=== PATIENT | female | born 1940 | race Hispanic/Latino ===

== ENCOUNTER 2018-04-25 08:05 | Emergency (ER) | payer MEDICARE, BC ==
[2018-04-25 08:09] VITALS: TEMP 98.2; BMI 31.1
[2018-04-25] MEDS ORDERED: cefTRIAXone (Rocephin) 1 gm Inj ONE (08:28)
[2018-04-25] MEDS ORDERED: Albuterol-Ipratrop 3 mg / 0.5 (3 ml) UD ONE (08:30)
[2018-04-25] MEDS ORDERED: Albuterol-Ipratrop 3 mg / 0.5 (3 ml) UD INH STA ×2 (08:43→08:45)
--- NOTE | 2018-04-25 08:49 | ED PDOC ---
HPI: SOB/CHF/COPD Time Seen by Provider: 04/25/18 08:15 Chief Complaint (Nursing): Shortness Of Breath Chief Complaint (Provider): Shortness Of Breath History Per: Patient History/Exam Limitations: no limitations Onset/Duration Of Symptoms: Days (x3) Additional Complaint(s): 77 year old female, with a past medical history of hypothyroidism, presenting for evaluation of shortness of breath x3 days. Patient report's a cold for the past 3 days with worsening chest congestion yesterday. Patient states she went to Urgent Care where she was prescribed Zithromax and Prednisone. Patient reports taking the Zithromax, but not taking the Prednisone. Patient states she had increased difficulty breathing from 0200 to 0600, prompting her to present to the ED. Patient reports a history of bronchitis and states she's had similar symptoms in the past when she was diagnosed with a pulmonary embolism (patient states she was told PE was due to right shoulder surgery). Patient reports she often feels similar symptoms after a cold. Patient otherwise denies any fevers, chills, vomiting, chest pain, back pain, abdominal pain, nausea, and headache. PMD: Dr. Robles Sewer Builder: Dr. Kelsey Wright Past Medical History Reviewed: Historical Data, Nursing Documentation, Vital Signs Vital Signs: Last Vital Signs Temp 98.2 F 04/25/18 08:09 Pulse 116 H 04/25/18 09:48 Resp 22 04/25/18 09:48 BP 137/72 04/25/18 09:48 Pulse Ox 97 04/25/18 11:01 - Medical History PMH: Bronchitis, Hypothyroidism Denies: Chronic Kidney Disease - Surgical History Surgical History: Cholecystectomy Other surgeries: right shoulder surgery - Family History Family History: States: No Known Family Hx - Social History Current smoker - smoking cessation education provided: No Alcohol: None Drugs: Denies - Home Medications Home Medications: Ambulatory Orders Medication Instructions Recorded Albuterol/Ipratropium [Duoneb 3 3 ml IH Q6H #40 neb 04/25/18 MG/3 Ml-0.5 MG/3 Ml 3 Ml] Nebulizer and Compressor [Conley 1 each Q6H #1 [facility]25[facility]18 [facility] - Allergies Allergies/Adverse Reactions: Allergies Allergy/AdvReac Type Severity Reaction Status Date / Time Sulfa (Sulfonamide Allergy ITCHING Verified 04/25/18 08:20 Antibiotics) Review of Systems ROS Statement: Except As Marked, All Systems Reviewed And Found Negative Constitutional: Negative for: Fever, Chills Cardiovascular: Positive for: Other (chest congestion). Negative for: Chest Pain Respiratory: Positive for: Shortness of Breath Gastrointestinal: Negative for: Nausea, Vomiting, Abdominal Pain, Diarrhea Musculoskeletal: Negative for: Back Pain Neurological: Negative for: Headache Physical Exam - Reviewed Nursing Documentation Reviewed: Yes Vital Signs Reviewed: Yes - Physical Exam Appears: Positive for: Well, Non-toxic, No Acute Distress Head Exam: Positive for: ATRAUMATIC, NORMAL INSPECTION, NORMOCEPHALIC Skin: Positive for: Normal Color, Warm, Dry. Negative for: Rash Eye Exam: Positive for: EOMI, Normal appearance, PERRL Neck: Positive for: Normal, Painless ROM, Supple Cardiovascular/Chest: Positive for: Regular Rate, Rhythm. Negative for: Murmur Respiratory: Positive for: Decreased Breath Sounds (left base), Crackles (scattered in right base), Wheezing (faint bilateral expiratory wheeze in all sanchez), Respiratory Distress (some shortness of breath, NOT in severe respiratory distress). Negative for: Other (retractions) Gastrointestinal/Abdominal: Positive for: Normal Exam, Soft. Negative for: Tenderness Back: Positive for: Normal Inspection. Negative for: L CVA Tenderness, R CVA Tenderness, Vertebral Tenderness Extremity: Positive for: Normal ROM. Negative for: Pedal Edema, Deformity, Swelling Neurologic/Psych: Positive for: Alert, Oriented. Negative for: Motor/Sensory Deficits - Laboratory Results Result Diagrams: 04/25/18 09:19 04/25/18 09:45 - ECG O2 Sat by Pulse Oximetry: 97 (RA) Pulse Ox Interpretation: Normal - Radiology X-Ray: Viewed By Me, Read By Radiologist X-Ray Interpretation: No Acute Disease - Progress Re-evaluation Time: 10:45 Condition: Re-examined, Improved Medical Decision Making Medical Decision Makin Initial Impression: URI/asthma exacerbation; rule out pneumonia Plan: -VBG shock panel -EKG -CMP -Troponin -CBC -CXR -Duoneb 3mL INH x2 -Rocephin 1gm/100mL IVPB -Blood culture -IV insertion -Flu swab -Reevaluation Scribe Attestation: Documented by Albert Mccauley, acting as a scribe for Jaleesa Barrera MD. Provider Scribe Attestation: All medical record entries made by the Scribe were at my direction and personally dictated by me. I have reviewed the chart and agree that the record accurately reflects my personal performance of the history, physical exam, medical decision making, and the department course for this patient. I have also personally directed, reviewed, and agree with the discharge instructions and disposition. Disposition - Clinical Impression Clinical Impression: Bronchospasm with bronchitis, acute - Patient ED Disposition Is Patient to be Admitted: No Doctor Will See Patient In The: Office Counseled Patient/Family Regarding: Diagnosis, Need For Followup, Rx Given - Disposition Referrals: Marco Robles MD [Staff Provider] - [facility] [place] [Outside] Disposition: Routine/Home Disposition Time: 10:45 Condition: IMPROVED Additional Instructions: Continue with Prednisone as prescribed. Continue with Advair according to Dr. Robles's intructions. Prescriptions: Albuterol/Ipratropium [Duoneb 3 MG/3 Ml-0.5 MG/3 Ml 3 Ml] 3 ml Q6H #40 neb Nebulizer and Compressor [Conley Choice Whis[employer] Aire Ped] 1 each Q6H #1 each Instructions: Acute Bronchitis Forms: Alf Perez (Tuvaluan) - POA Present On Arrival: None
[2018-04-25 09:13] LABS: VENOUS BLOOD GAS BASE EXCESS 0.5 mmol/L (0.0-2.0); VENOUS BLOOD GAS PCO2 47 mmHg (40-60); VENOUS BLOOD GAS PO2 29 mm/Hg (30-55); VENOUS BLOOD PH 7.36 (7.32-7.43)
--- NOTE | 2018-04-25 09:18 | RAD ---
Date of service: 04/25/2018 HISTORY: dyspnea, uri, cough, COMPARISON: No prior. TECHNIQUE: Chest PA and lateral FINDINGS: LUNGS: Discoid like atelectasis mild left infrahilar peribronchial thickening overseas peribronchial inflammatory changes compatible with this) and/or scarring left lung base suggested PLEURA: No significant pleural effusion identified. No pneumothorax apparent. CARDIOVASCULAR: Normal heart size. Right hilum-prominent appearing-chronicity unknown. Possibly technique related. Consider CT of the chest (with contrast)) for clarification. OSSEOUS STRUCTURES: No significant abnormalities. VISUALIZED UPPER ABDOMEN: Cholecystectomy clips. OTHER FINDINGS: None. IMPRESSION: Nonspecific left infrahilar linear/peribronchial marking prominence-differential considerations are a focal bronchitic process-early infiltrate. Discoid atelectasis and/or scarring-of unknown chronicity-also considerations. Findings more pronounced on frontal view than lateral. Mild right hilar prominence of unknown clinical significance-if any; indeterminate. Consider CT chest to clarify.
[2018-04-25 09:25] LABS: BASO % 0.3 % (0.0-2.0); EOS # 0.1 K/uL (0.0-0.7); EOS % 0.5 % (0.0-4.0); HEMOGLOBIN 14.1 g/dL (12.0-16.0); LYMPH # 1.3 K/uL (1.0-4.3); LYMPH % 10.1 % (20.0-40.0); MEAN CELL VOLUME 88.5 fl (81.0-99.0); MEAN CORPUSCULAR HEMOGLOBIN 30.1 pg (27.0-31.0); MEAN CORPUSCULAR HGB CONC 33.9 g/dL (33.0-37.0); MEAN PLATELET VOLUME 8.9 fl (7.2-11.7); MONO # 0.9 K/uL (0.0-0.8); MONO % 7.1 % (0.0-10.0); NEUT # 10.5 K/uL (1.8-7.0); NRBC % 0.1 % (0.0-0.0); RBC 4.7 Mil/uL (3.80-5.20); RED CELL DISTRIBUTION WIDTH 14.1 % (11.5-14.5); WHITE BLOOD COUNT 12.8 K/uL (4.8-10.8)
[2018-04-25 10:09] LABS: ALB/GLOB RATIO 1.3 (1.0-2.1); ALBUMIN 4.3 g/dL (3.5-5.0); BLOOD UREA NITROGEN 12 mg/dl (7-17); CALCIUM 8.8 mg/dL (8.4-10.2); GFR NON-AFRICAN AMERICAN > 60
[2018-04-25 10:18] LABS: ALT/SGPT 21 U/L (9-52); AST/SGOT 25 U/L (14-36)
[2018-04-25 11:31] VITALS: BP 130/58; PULSE 107; RESP 20; O2SAT 95
--- NOTE | 2018-04-25 14:27 | CARD ---
APPROVED REPORT Date of service: 04/25/2018 EKG Measurement Heart [id number] <Conclusion> Sinus tachycardia prolonged QT Nonspecific ST abnormality Abnormal ECG
== END 2018-04-25 11:30 | disposition home or self-care (01) ==
LOC: H.ER 08:05
DX: J98.01 Acute bronchospasm (principal)
CPT/HCPCS: 71046; 80053; 82803; 84484; 85025; 87040; 87804; 93005; 94640; 96365; 99285; J0696